=== PATIENT | male | born 1995 | race Caucasian/White ===

== ENCOUNTER 2018-02-01 16:12 | Emergency (ER) | payer MEDICAID ==
[~2018-02-01] VITALS: Ht 172.7 cm; Wt 79.4 kg
[2018-02-01 16:22] VITALS: BP 140/97
--- NOTE | 2018-02-01 16:27 | NUR ---
PT BB SELF FROM STREETS STATING "ALL I NEED IS TO SLEEP, EAT SOME FOOD AND GET SOME WATER". PT REFUSED TO ANSWER ANY OTHER QUESTIONS. PT STATED "I NEED TO BE SEEN RIGHT NOW OR ELSE I WILL GRAB MY STUFF AND WALK OUT RIGHT NOW". PT IS AAOX4. RESP EVEN AND UNLABORED. NO S/S OF ACUTE DISTRESS NOTED. AWAITING MD FOR EVAL.
--- NOTE | 2018-02-01 16:42 | NUR ---
Patient discharged to home in stable condition. PT refused written and verbal after care instructions and left without the paperwork. MD made aware. VSS upon discharge
== END 2018-02-01 16:44 | disposition home or self-care (01) ==
LOC: ER 16:13
DX: F12.10 Cannabis abuse, uncomplicated (principal); F32.9 Major depressive disorder, single episode, unspecified; F41.9 Anxiety disorder, unspecified; Z88.8 Allergy status to other drugs, medicaments and biological substances
CPT/HCPCS: A4606; Z7610

== ENCOUNTER 2018-02-18 21:44 | Emergency (ER) | payer MEDICAID ==
[~2018-02-18] VITALS: Ht 182.9 cm; Wt 81.6 kg
[2018-02-18 21:50] VITALS: BP 109/56
--- NOTE | 2018-02-19 00:01 | NUR ---
PATIENT WALKED OUT OF THE ER WITH A STEADY GAIT PER SECUROITY AND MACHINE REPAIR PERSON, PT DECIDED NOT TO WAIT AND WANTED TO GO HOME
== END 2018-02-19 00:04 | disposition left against medical advice (07) ==
LOC: ER 21:45
DX: F10.129 Alcohol abuse with intoxication, unspecified (principal); Z53.21 Procedure and treatment not carried out due to patient leaving prior to being seen by health care provider
CPT/HCPCS: A4606; Z7610